=== PATIENT | male | born 1990 | race African-American/Black ===

== ENCOUNTER 2017-10-26 20:41 | Inpatient (IN) | payer MEDICARE ==
[2017-10-26] MEDS ORDERED: IBUPROFEN 400 MG TABLET (FP) PO ONE (20:50)
--- NOTE | 2017-10-26 20:50 | PDOC ---
Rapid Medical Evaluation Time Seen by Provider: 10/26/17 20:47 Medical Evaluation: 10/26/17 20:47 I have performed a brief in-person evaluation of this patient. The patient presents with a chief complaint of: L knee pain/swelling x week, no trauma. Denies urethritis, conjunctivitis or f/c Pertinent physical exam findings:Low grade temp w/ significant L knee swelling, I have ordered the following: labs/ua/xr/motrin The patient will proceed to the ED for further evaluation. 10/26/17 20:54
[2017-10-26 20:54] VITALS: BMI 22.6
[2017-10-26 21:14] LABS: BASO % 0.5 % (0-2.0); EOS % 0.5 % (0-4.5); HEMATOCRIT 39.7 % (35.4-49); HEMOGLOBIN 12.9 GM/dL (11.7-16.9); LYMPH % 23.7 % (8-40); MCH 27.2 pg (25.7-33.7); MCHC 32.4 g/dl (32.0-35.9); MEAN CELL VOLUME 83.8 fl (80-96); MEAN PLT VOLUME 9.1 fl (7.5-11.1); MONO % 11.2 % (3.8-10.2); NEUT % 64.1 % (42.8-82.8); PLATELET COUNT 328 K/MM3 (134-434); RBC 4.74 M/mm3 (4.00-5.60); WHITE BLOOD COUNT 11.5 K/mm3 (4.0-10.0)
[2017-10-26 21:22] LABS: URINE APPEARANCE CLEAR; URINE BILIRUBIN NEGATIVE (NEGATIVE); URINE BLOOD NEGATIVE (NEGATIVE); URINE COLOR YELLOW; URINE GLUCOSE (UA) NEGATIVE (NEGATIVE); URINE KETONE NEGATIVE (NEGATIVE); URINE LEUK ESTERASE NEGATIVE (NEGATIVE); URINE NITRITE NEGATIVE (NEGATIVE); URINE PROTEIN 1+ (NEGATIVE); URINE UROBILINOGEN 4.0 E.U/dl mg/dL (0.2-1.0)
[2017-10-26 21:39] LABS: ALBUMIN 3.9 g/dl (3.4-5.0); ANION GAP 8 (8-16); BILIRUBIN,TOTAL 0.7 mg/dL (0.2-1.0); BLOOD UREA NITROGEN 10 mg/dL (7-18); CALCIUM 9.7 mg/dL (8.5-10.1); CHLORIDE 102 mmol/L (98-107); CO2 30 mmol/L (21-32); CREATININE 0.9 mg/dL (0.7-1.3); GLUCOSE,RANDOM 97 mg/dL (74-106); POTASSIUM 3.8 mmol/L (3.5-5.1); SGOT/AST 21 U/L (15-37); SGPT/ALT 25 U/L (12-78); SODIUM 140 mmol/L (136-145); TOT PROT 7.9 g/dl (6.4-8.2)
[2017-10-26 21:40] LABS: ALK PHOS 90 U/L (45-117)
[2017-10-26 21:49] LABS: URINE MUCUS RARE
--- NOTE | 2017-10-27 00:35 | PDOC ---
History of Present Illness <Josie Ellison - Last Filed: 10/27/17 02:23> - General History Source: Patient - History of Present Illness Initial Comments: 10/27/17 00:24 27 year old male left knee pain and swelling x 4 days that is worsening. denies trauma/ injury, fever/ chills, NVD, abdominal pain, chest pain. no pmhx. 10/27/17 00:54 <Jenae Ellison - Last Filed: 10/27/17 06:48> - General Chief Complaint: Pain, Acute Stated Complaint: LEFT LEG PAIN Time Seen by Provider: 10/26/17 20:47 Extremity Pain Location - Extremity Pain Location Extremity Pain Locations: left: knee <Jenae Ellison - Last Filed: 10/27/17 06:48> Past History <Josie Ellison - Last Filed: 10/27/17 02:23> - Past Medical History COPD: No - Suicide/Smoking/Psychosocial Hx Smoking History: Never smoked Have you smoked in the past 12 months: No Information on smoking cessation initiated: No Hx Alcohol Use: No Drug/Substance Use Hx: No Substance Use Type: None <Jenae Ellison - Last Filed: 10/27/17 06:48> - Past Medical History Allergies/Adverse Reactions: Allergies Allergy/AdvReac Type Severity Reaction Status Date / Time No Known Allergies Allergy Verified 10/26/17 22:22 Home Medications: Ambulatory Orders NK [No Known Home Medication] 10/27/17 Review of Systems - Review of Systems Able to Perform ROS?: Yes Is the patient limited Khmer proficient: No Integumentary: Yes: Other (left knee pain) <Jenae Ellison - Last Filed: 10/27/17 06:48> *Physical Exam - Vital Signs Last Vital Signs Temp Pulse Resp BP Pulse Ox 100.0 F H 122 H 18 142/76 100 10/26/17 20:48 10/26/17 20:48 10/26/17 20:48 10/26/17 20:48 10/26/17 20:48 <Josie Ellison - Last Filed: 10/27/17 02:23> - Vital Signs Last Vital Signs Temp Pulse Resp BP Pulse Ox 100.0 F H 122 H 18 142/76 100 10/26/17 20:48 10/26/17 20:48 10/26/17 20:48 10/26/17 20:48 10/26/17 20:48 - Physical Exam General Appearance: Yes: Appropriately Dressed Respiratory/Chest: positive: Lungs Clear, Normal Breath Sounds Cardiovascular: positive: Tachycardia Gastrointestinal/Abdominal: positive: Normal Bowel Sounds, Soft Extremity: positive: Normal Inspection, Swelling (Left knee pin) Neurologic: positive: Alert, Normal Mood/Affect <Jenae Ellison - Last Filed: 10/27/17 06:48> Procedures - Arthrocentesis Indication: Septic Joint, Inflammation, Reduce Pain Arthrocentesis Site: left: knee Flexion: 20-30 degree Betadine Prep: Yes Sterile Dressing Applied: Yes Dry Tap: No Fluid Color: Yellow Fluid Amount mL: 10 Anesthesia: 1% Lidocaine Needle Size (guage): 18g Complications: No <Josie Ellison - Last Filed: 10/27/17 02:23> - Consent Consent obtained: Written, From Patient - Additional Procedures Additional Procedures: other (left knee fluid withdrawal) Progress: 10/27/17 03:02 10 ml of left knee fluid removed. + clear brown synovial fluid removed, By Dr. ellison. 10/27/17 03:08 <Jenae Ellison - Last Filed: 10/27/17 06:48> ED Treatment Course - LABORATORY CBC & Chemistry Diagram: 10/26/17 20:59 10/26/17 20:59 - ADDITIONAL ORDERS Additional order review: Laboratory Results 10/27/17 10/26/17 10/26/17 01:00 20:59 20:50 Sodium 140 Potassium 3.8 Chloride 102 Carbon Dioxide 30 Anion Gap 8 BUN 10 Creatinine 0.9 Creat Clearance w eGFR > 60 Random Glucose 97 Calcium 9.7 Total Bilirubin 0.7 AST 21 ALT 25 Alkaline Phosphatase 90 C-Reactive Protein 1.8 H Total Protein 7.9 Albumin 3.9 Urine Color Yellow Urine Appearance Clear Urine pH 9.0 H Ur Specific [place] 1.021 Urine Protein 1+ H Urine Glucose (UA) Negative Urine Ketones Negative Urine Blood Negative Urine Nitrite Negative Urine Bilirubin Negative Urine Urobilinogen 4.0 e.u/dl Ur Leukocyte Esterase Negative Urine WBC (Auto) <1 Urine RBC (Auto) None Urine Mucus Rare 10/26/17 20:59 RBC 4.74 MCV 83.8 MCHC 32.4 RDW 13.0 MPV 9.1 Neutrophils % 64.1 Lymphocytes % 23.7 Monocytes % 11.2 H Eosinophils % 0.5 Basophils % 0.5 - Medications Given in the ED: ED Medications Discontinued Medications Generic Name Dose Route Start Last Admin Trade Name Areli PRN Reason Stop Dose Admin Ibuprofen 800 mg 10/26/17 20:50 10/27/17 01:34 Motrin - PO 10/26/17 20:51 Not Given ONCE ONE Ketorolac Tromethamine 30 mg 10/27/17 00:55 10/27/17 00:50 Toradol Injection - IVPUSH 10/27/17 00:56 30 mg ONCE ONE Administration <Josie Ellison - Last Filed: 10/27/17 02:23> - LABORATORY CBC & Chemistry Diagram: 10/26/17 20:59 10/26/17 20:59 - ADDITIONAL ORDERS Additional order review: Laboratory Results 10/26/17 10/26/17 20:59 20:50 Sodium 140 Potassium 3.8 Chloride 102 Carbon Dioxide 30 Anion Gap 8 BUN 10 Creatinine 0.9 Creat Clearance w eGFR > 60 Random Glucose 97 Calcium 9.7 Total Bilirubin 0.7 AST 21 ALT 25 Alkaline Phosphatase 90 Total Protein 7.9 Albumin 3.9 Urine Color Yellow Urine Appearance Clear Urine pH 9.0 H Ur Specific [place] 1.021 Urine Protein 1+ H Urine Glucose (UA) Negative Urine Ketones Negative Urine Blood Negative Urine Nitrite Negative Urine Bilirubin Negative Urine Urobilinogen 4.0 e.u/dl Ur Leukocyte Esterase Negative Urine WBC (Auto) <1 Urine RBC (Auto) None Urine Mucus Rare 10/26/17 20:59 RBC 4.74 MCV 83.8 MCHC 32.4 RDW 13.0 MPV 9.1 Neutrophils % 64.1 Lymphocytes % 23.7 Monocytes % 11.2 H Eosinophils % 0.5 Basophils % 0.5 <Jenae Ellison - Last Filed: 10/27/17 06:48> Progress Note - Progress Note Progress Note: A: left knee pain and swelling / Lyme? arthritis? joint infection? gonococci arthritis? P: CBC cmp ibuprofen ESR CRP blood culture XRay Dr. singh made aware of patient. recommends therapeutic fluid removal (cell count , gram stain, crystals pending. ) <Jenae Ellison - Last Filed: 10/27/17 06:48> Medical Decision Making - Medical Decision Making 10/27/17 03:08 Patient signed out to Dr. padilla. Patient to be admitted for further management of care. 10/27/17 03:10 <Jenae Ellison - Last Filed: 10/27/17 06:48> *DC/Admit/Observation/Transfer <Josie Ellison - Last Filed: 10/27/17 02:23> - Discharge Dispostion Admit: Yes <Jenae Ellison - Last Filed: 10/27/17 06:48> Diagnosis at time of Disposition: Swelling of knee joint, left
[2017-10-27] MEDS ORDERED: KETOROLAC TROMETHAMINE 30 MG/1 ML VIAL IVPUSH ONE (00:55)
[2017-10-27] MEDS ORDERED: KETOROLAC TROMETHAMINE 30 MG/1 ML VIAL ONE (01:07)
[2017-10-27] MEDS ORDERED: CEFTRIAXONE 2,000 MG in DEXTROSE 5%-WATER - 50 ML IVPB ONE (01:44)
[2017-10-27] MEDS ORDERED: cefTRIAXone 2 GM/100 ML BAG (PRE-DOCKED) IVPB ONE (02:15)
[2017-10-27] MEDS ORDERED: CEFTRIAXONE 2 GM/100 ML BAG IVPB ONE (02:40)
[2017-10-27 02:55] LABS: TOTAL PROTEIN,SYNOVIAL FLUID 5 gm/dL
[2017-10-27 02:56] LABS: GLUCOSE,SYNOVIAL FLUID 16 mg/dL
--- NOTE | 2017-10-27 03:08 | PN ---
Teaching Attending Note Name of Resident: Kuldip Wise ATTENDING PHYSICIAN STATEMENT I saw and evaluated the patient. I reviewed the resident's note and discussed the case with the resident. I agree with the resident's findings and plan as documented. SUBJECTIVE: 27 M with no Pmhx who presents with Left knee pain. Also with associated swelling. Pain and edema have been going on for 4 days in duration. States he does not note any injuries and that this has never happened. States he is not sexually active. OBJECTIVE: Physica: VS: Vital Signs Period Temp Pulse Resp BP Sys/Ta Pulse Ox Last 24 Hr 99 F-100.0 F 122 18 142/76 100 GEN: NAD, Resting in bed, AA0X3 HEENT: NCAT, PERRL, Throat without erythema or exudates CARD: RRR S1, S2 RESP: CTAB ABD: BSx4, NTD to palpation EXT: L. Knee with warmth and edema CBCD WBC 11.5 K/mm3 (4.0-10.0) H 10/26/17 20:59 RBC 4.74 M/mm3 (4.00-5.60) 10/26/17 20:59 Hgb 12.9 GM/dL (11.7-16.9) 10/26/17 20:59 Hct 39.7 % (35.4-49) 10/26/17 20:59 MCV 83.8 fl (80-96) 10/26/17 20:59 MCHC 32.4 g/dl (32.0-35.9) 10/26/17 20:59 RDW 13.0 % (11.9-15.9) 10/26/17 20:59 Plt Count 328 K/MM3 (134-434) 10/26/17 20:59 MPV 9.1 fl (7.5-11.1) 10/26/17 20:59 CMP Sodium 140 mmol/L (136-145) 10/26/17 20:59 Potassium 3.8 mmol/L (3.5-5.1) 10/26/17 20:59 Chloride 102 mmol/L (98-107) 10/26/17 20:59 Carbon Dioxide 30 mmol/L (21-32) 10/26/17 20:59 Anion Gap 8 (8-16) 10/26/17 20:59 BUN 10 mg/dL (7-18) 10/26/17 20:59 Creatinine 0.9 mg/dL (0.7-1.3) 10/26/17 20:59 Creat Clearance w eGFR > 60 (>60) 10/26/17 20:59 Random Glucose 97 mg/dL (74-106) 10/26/17 20:59 Calcium 9.7 mg/dL (8.5-10.1) 10/26/17 20:59 Total Bilirubin 0.7 mg/dL (0.2-1.0) 10/26/17 20:59 AST 21 U/L (15-37) 10/26/17 20:59 ALT 25 U/L (12-78) 10/26/17 20:59 Alkaline Phosphatase 90 U/L (45-117) 10/26/17 20:59 Total Protein 7.9 g/dl (6.4-8.2) 10/26/17 20:59 Albumin 3.9 g/dl (3.4-5.0) 10/26/17 20:59 ASSESSMENT AND PLAN: 27 M with no Pmhx who presents with Left knee pain. Also with associated swelling. Pain and edema have been going on for 4 days in duration, being admitted for a possible septic joint 1.) Sepsis - Most likely due to joint infection of L Knee - FU Xray - LA stat - IVF - Ortho consulted by ED, Appreciate reccs - Dan cx - FU Synovial fluid studies - FU GC/Chlam - HIV testing if pt. willing - Vanco/Ceftriaxone - ID Consult - Coags, CBC, Type & Screen 2.) Dvt Ppx - Scds Place in Med-Sx
[2017-10-27 03:17] LABS: SYNOVIAL FLUID LYMPHOCYTES 2 %; SYNOVIAL FLUID MACROPHAGES 7 %; SYNOVIAL FLUID MONOCYTES 4 %; SYNOVIAL FLUID NEUTROPHILS 87 %; SYNOVIAL FLUID RBC 7029 /mm3
--- NOTE | 2017-10-27 03:34 | HP ---
CHIEF COMPLAINT: L knee pain, swelling x4 days PCP: None HISTORY OF PRESENT ILLNESS: 27 yo man w/ no significant pmh who presents w/ 4 days of progressive worsening L knee swelling and pain. Pt states that pain in L knee began the prior Wednesday and that it progressively developed with no trauma to the L knee or leg. Pt states that the pain is throbbing in nature, with no radiation to other areas of the leg and denies any neuro/vascular symptoms in the L leg. He does endorse periarticular swelling and weakness at the knee with ambulation, but no sensation of crepitus, increased laxity or gross deformity. He denies any hx of psoriasis, STDs, arthridities, recent rashes, dysuria, genital lesions, diets with large amounts of meat/seafood, excessive alcohol consumption or recent unprotected sex. He denies any pain in other joints and has never had pain like this before. He denies any fever/chills, HILL/dizziness, CP, SOB, cough, abdominal pain, N/V, diarrhea/constipation, rashes or neurologic symptoms. He endorses multiple family members with arthritis (Grandfather, mother), but is unsure of the etiology. Pt denies any recent travel. ER course was notable for: (1)WBC 11.5 (2)Fever 100, Tachy 122 (3)CRP 1.8, ESR 13 (4) Synovial fluid w/ WBC 6284 Recent Travel: None PAST MEDICAL HISTORY: None PAST SURGICAL HISTORY: None Social History: Smokin/3 ppd Alcohol: 2-3 drinks/week, social drinker Drugs: Denies Denies any hx of unprotected sex Family History: Grandfather w/ arthritis of unknown etiology Mother w/ arthritis of unknown etiology, DM2 Allergies No Known Allergies Allergy (Verified 10/26/17 22:22) HOME MEDICATIONS: REVIEW OF SYSTEMS CONSTITUTIONAL: Absent: fever, chills, diaphoresis, generalized weakness, malaise, loss of appetite, weight change HEENT: Absent: rhinorrhea, nasal congestion, throat pain, throat swelling, difficulty swallowing, mouth swelling, ear pain, eye pain, visual changes CARDIOVASCULAR: Absent: chest pain, syncope, palpitations, irregular heart rate, lightheadedness , peripheral edema RESPIRATORY: Absent: cough, shortness of breath, dyspnea with exertion, orthopnea, wheezing, stridor, hemoptysis GASTROINTESTINAL: Absent: abdominal pain, abdominal distension, nausea, vomiting, diarrhea, constipation, melena, hematochezia GENITOURINARY: Absent: dysuria, frequency, urgency, hesitancy, hematuria, flank pain, genital pain MUSCULOSKELETAL: joint swelling, arthralgia x4 days Absent: myalgia, back pain, neck pain SKIN: Absent: rash, itching, pallor HEMATOLOGIC/IMMUNOLOGIC: Absent: easy bleeding, easy bruising, lymphadenopathy, frequent infections ENDOCRINE: Absent: unexplained weight gain, unexplained weight loss, heat intolerance, cold intolerance NEUROLOGIC: Absent: headache, focal weakness or paresthesias, dizziness, unsteady gait, seizure, mental status changes, bladder or bowel incontinence PHYSICAL EXAMINATION Vital Signs - 24 hr 10/26/17 10/27/17 20:48 02:39 Temperature 100.0 F H 99 F Pulse Rate 122 H Respiratory 18 Rate Blood Pressure 142/76 O2 Sat by Pulse 100 Oximetry (%) GENERAL: Awake, alert, and fully oriented, in no acute distress. HEAD: Normal with no signs of trauma. EYES: Pupils equal, round and reactive to light, extraocular movements intact, sclera anicteric, conjunctiva clear. No lid lag. EARS, NOSE, THROAT: Ears normal, nares patent, oropharynx clear without exudates. Moist mucous membranes. NECK: Normal range of motion, supple without lymphadenopathy, JVD, or masses. LUNGS: Breath sounds equal, clear to auscultation bilaterally. No wheezes, and no crackles. No accessory muscle use. HEART: Regular rate and rhythm, normal S1 and S2 without murmur, rub or gallop. ABDOMEN: Soft, nontender, not distended, normoactive bowel sounds, no guarding, no rebound, no masses. No hepatomegaly or splenomegaly. MUSCULOSKELETAL: L knee with periarticular edema, no erythema or tenderness to palpation. Limited ROM to passive flexion/extension due to pain/edema. No lacerations, gross deformities noted. Negative naheed's, posterior drawer test. No obvious bony deformities noted at joint line. [facility]'s test not performed. No other joint pain/abnormalities. No CVA tenderness. UPPER EXTREMITIES: 2+ pulses, warm, well-perfused. No cyanosis. No clubbing. No peripheral edema. LOWER EXTREMITIES: L knee with findings as stated above. 2+ pulses, warm, well- perfused. No calf tenderness. No peripheral edema. NEUROLOGICAL: Cranial nerves II-XII intact. Normal speech. Gait not evaluated. 5/5 strength in all extremities grossly. Sensation to light touch preserved in all extremities. PSYCHIATRIC: Cooperative. Good eye contact. Appropriate mood and affect. SKIN: Warm, dry, normal turgor, no rashes or lesions noted, normal capillary refill. Laboratory Results - last 24 hr CBC, BMP 10/26/17 20:59 10/26/17 20:59 10/26/17 10/26/17 10/26/17 20:50 20:59 20:59 WBC 11.5 H RBC 4.74 Hgb 12.9 Hct 39.7 MCV 83.8 MCH 27.2 MCHC 32.4 RDW 13.0 Plt Count 328 MPV 9.1 Neutrophils % 64.1 Lymphocytes % 23.7 Monocytes % 11.2 H Eosinophils % 0.5 Basophils % 0.5 ESR Sodium 140 Potassium 3.8 Chloride 102 Carbon Dioxide 30 Anion Gap 8 BUN 10 Creatinine 0.9 Creat Clearance w eGFR > 60 Random Glucose 97 Calcium 9.7 Total Bilirubin 0.7 AST 21 ALT 25 Alkaline Phosphatase 90 C-Reactive Protein Total Protein 7.9 Albumin 3.9 Urine Color Yellow Urine Appearance Clear Urine pH 9.[address] [place] 1.021 Urine Protein 1+ H Urine Glucose (UA) Negative Urine Ketones Negative Urine Blood Negative Urine Nitrite Negative Urine Bilirubin Negative Urine Urobilinogen 4.0 e.u/dl Ur Leukocyte Esterase Negative Urine WBC (Auto) <1 Urine RBC (Auto) None Urine Mucus Rare Synovial Source Synovial WBC Synovial RBC Synovial Neutrophils Synovial Lymphocytes Synovial Monocytes Synovial Macrophages Synovial Glucose Synovial Total Protein Synovial LDH Synovial Amylase 10/27/17 10/27/17 10/27/17 01:00 01:00 02:15 WBC RBC Hgb Hct MCV MCH MCHC RDW Plt Count MPV Neutrophils % Lymphocytes % Monocytes % Eosinophils % Basophils % ESR 13 H Sodium Potassium Chloride Carbon Dioxide Anion Gap BUN Creatinine Creat Clearance w eGFR Random Glucose Calcium Total Bilirubin AST ALT Alkaline Phosphatase C-Reactive Protein 1.8 H Total Protein Albumin Urine Color Urine Appearance Urine pH Ur Specific [place] Urine Protein Urine Glucose (UA) Urine Ketones Urine Blood Urine Nitrite Urine Bilirubin Urine Urobilinogen Ur Leukocyte Esterase Urine WBC (Auto) Urine RBC (Auto) Urine Mucus Synovial Source No Result Required. Synovial WBC 6284 Synovial RBC 7029 Synovial Neutrophils 87 Synovial Lymphocytes 2 Synovial Monocytes 4 Synovial Macrophages 7 Synovial Glucose Synovial Total Protein Synovial LDH Synovial Amylase 10/27/17 02:15 WBC RBC Hgb Hct MCV MCH MCHC RDW Plt Count MPV Neutrophils % Lymphocytes % Monocytes % Eosinophils % Basophils % ESR Sodium Potassium Chloride Carbon Dioxide Anion Gap BUN Creatinine Creat Clearance w eGFR Random Glucose Calcium Total Bilirubin AST ALT Alkaline Phosphatase C-Reactive Protein Total Protein Albumin Urine Color Urine Appearance Urine pH Ur Specific [place] Urine Protein Urine Glucose (UA) Urine Ketones Urine Blood Urine Nitrite Urine Bilirubin Urine Urobilinogen Ur Leukocyte Esterase Urine WBC (Auto) Urine RBC (Auto) Urine Mucus Synovial Source Synovial WBC Synovial RBC Synovial Neutrophils Synovial Lymphocytes Synovial Monocytes Synovial Macrophages Synovial Glucose 16 Synovial Total Protein 5 Synovial LDH 141 Synovial Amylase 58 CXR (PA/lateral) - pending Knee XR - unremarkable EKG - pending ASSESSMENT/PLAN: 27 yo man w/ no significant pmh who presents w/ 4 days of progressive worsening L knee swelling and pain. Pt with 2/4 SIRS criteria (Fever 100, tachy 122) and suspected source. Ortho, ID consulted and joint fluid aspirate sent for analysis. #Sepsis secondary to suspected septic arthritis - 2/4 SIRS (Tachy 122, fever) + presumptive L joint infection, WBC 11.5; L joint fluid WBC 6284; ERP, CRP elevated - Elevated synovial WBC suggestive of inflammatory arthritis, however not in the typical range for septic arthritis (>50,000). - Ortho consulted (Dr. Calhoun aware, will see pt in AM) - Beach culture - Rocephin/Vancomycin for empiric coverage - F/u remaining joint aspirate studies (lyme, crystals, gram stain etc..) - Tylenol for pain control - Trend WBC, fever - Consider Uric Acid level, CCP/RF if indicated - GC/Chlamydia test - HIV test if patient amenable - Obtain further fam hx regarding unknown arthritis - Lactate 0.8 - IVFs - UA negative - ID consult, recs appreciated PPX SCDs FEN NS 75cc/hr Daily BMPs, no eletrolyte abnormalities Regular diet Med-surg Plan discussed with attending, Dr. Sukhdev Wise, PGY1 Visit type - Emergency Visit Emergency Visit: Yes ED Registration Date: 10/27/17 Care time: The patient presented to the Emergency Department on the above date and was hospitalized for further evaluation of their emergent condition. - New Patient This patient is new to me today: Yes Date on this admission: 10/27/17 - Critical Care Critical Care patient: No
[2017-10-27] MEDS ORDERED: ACETAMINOPHEN 325 MG TABLET (FP) PO PRN (04:03)
[2017-10-27] MEDS ORDERED: VANCOMYCIN 1,000 MG in DEXTROSE 5%-WATER - 250 ML IVPB ONE (04:13)
[2017-10-27] MEDS ORDERED: VANCOMYCIN 1 GRAM (PRE-DOCKED) 1,000 MG/250 ML BAG IVPB ONE (05:06)
[2017-10-27] MEDS: SODIUM CHLORIDE 1,000 ML IV SCH ×2 (05:12→10:38)
[2017-10-27] MEDS ORDERED: HEPARIN NA (PORCINE) 5,000 UNITS/ML 1ML VIAL SQ SCH (06:00)
[2017-10-27 07:58] LABS: ALBUMIN 3.6 g/dl (3.4-5.0); ANION GAP 6 (8-16); BILIRUBIN,TOTAL 0.7 mg/dL (0.2-1.0); BLOOD UREA NITROGEN 12 mg/dL (7-18); CALCIUM 8.7 mg/dL (8.5-10.1); CHLORIDE 103 mmol/L (98-107); CO2 31 mmol/L (21-32); CREATININE 0.9 mg/dL (0.7-1.3); GLUCOSE,RANDOM 97 mg/dL (74-106); POTASSIUM 3.9 mmol/L (3.5-5.1); SGOT/AST 14 U/L (15-37); SGPT/ALT 21 U/L (12-78); SODIUM 140 mmol/L (136-145); TOT PROT 7.5 g/dl (6.4-8.2)
[2017-10-27 07:59] LABS: ALK PHOS 87 U/L (45-117)
[2017-10-27 08:06] LABS: BASO % 0.5 % (0-2.0); EOS % 0.8 % (0-4.5); HEMATOCRIT 41.6 % (35.4-49); HEMOGLOBIN 13.2 GM/dL (11.7-16.9); LYMPH % 28.8 % (8-40); MCHC 31.7 g/dl (32.0-35.9); MEAN CELL VOLUME 85.2 fl (80-96); MEAN PLT VOLUME 9.1 fl (7.5-11.1); MONO % 10.7 % (3.8-10.2); NEUT % 59.2 % (42.8-82.8); PLATELET COUNT 332 K/MM3 (134-434); RBC 4.88 M/mm3 (4.00-5.60); RDW 13.1 % (11.9-15.9)
[2017-10-27 08:40] LABS: INR 1.07 (0.82-1.09); PROTHROMBIN TIME (PATIENT) 12.1 SEC (9.98-11.88)
--- NOTE | 2017-10-27 10:54 | PN ---
Progress Note (short form) - Note Progress Note: ID consult dictated imp/reccd acute monoarticular arthritis-no falls no injury, no bites arthrocentesis more c/w inflammatory process then septic arthritis, but esr is 13! exam as well not c/w septic knee await studies of the fluid check lyme (but no RF) chlamydia/GC NAAT pending agreeable to HIV testing cultures pending ortho eval pending continue ceftriaxone
--- NOTE | 2017-10-27 11:09 | CONSULT ---
Consult - text type - Consultation Consultation Note: FULL CONSULT DICTATED IMP: effusion left knee PLAN: NSAIDS, ? ABX FOR GC
--- NOTE | 2017-10-27 12:06 | CONS ---
DATE OF CONSULTATION: 10/27/2017 ORTHOPEDIC EMERGENCY ROOM CONSULTATION/[facility] Patient is a 27-year-old male complaining of atraumatic effusion and swelling in his left knee for the past day or two with a low-grade fever. He presented to the emergency room with these complaints. The emergency room staff tapped the knee in the emergency room and received a white blood cell count of 6284. Patient laboratory value shows a white count of 11.5, which is slightly elevated, and a sedimentation rate of only 13. Orthopedic consultation was then called. PHYSICAL EXAMINATION: On physical examination, patient has full range of motion in hip, knee, ankle, and toes. He does have a moderate effusion in his left knee, but no tenderness, no erythema, warmth, otherwise neurovascularly intact. Calf is soft, nontender. IMAGING: X-rays performed of the left knee were negative of fracture, dislocation, lytic or blastic lesions. Positive for the effusion. IMPRESSION: Atraumatic effusion in the left knee. Patient does say that he was sexually active, unprotected. So, one must entertain the possibility of gonorrhea to his left knee. Otherwise, the tap with only 6000 white cells is not conclusive for septic arthritis. Patient should be placed some anti-inflammatories, ice, elevation, Infectious Disease is seeing the patient, as well, and we will follow the patient while the patient is in the hospital and as an outpatient. KAMILAH SHERWOOD M.D. BRAEDEN/[id number]
--- NOTE | 2017-10-27 12:13 | CONS ---
INFECTIOUS DISEASE CONSULTATION DATE OF CONSULTATION: DATE OF DICTATION: 10/27/2017 Requested by the hospitalist service. This is a 27-year-old man admitted with 4 days of worsening left knee swelling. This started on Wednesday. Then, he apparently did not work on Wednesday or Wednesday. He returned to work and was on his feet all day on Wednesday. His pain got much worse. He had a lot of swelling and he came to the emergency room. He has never had this happen before. He denies any other joint swelling. He has not had any rash. He has not had any fevers or chills. There has been no antecedent illness in the last several months. He has not had any diarrheal illnesses. He is sexually active. He has one partner with whom he is monogamous. He denies any history of STDs. His was last screened about a year ago. There is no history of any travel. He does not have any pets. There is no history of any trauma or falls. In the ER, he was noted to have a temp of 100, white count was 11.5, his sedimentation rate was 13, and he had 10 mL of clear fluid removed from his knee that had a white cell count of 6284. Past medical history and surgical history are negative. SOCIAL HISTORY: He works at [employer]. He smokes cigarettes. He drinks alcohol socially. He works in a store. There is no history of any intravenous drug use. He has a girlfriend. He lives with his grandmother. He was STD-screened last year and was negative. REVIEW OF SYSTEMS: There have been no tick bites. His weight has been stable. He denies any URI or cough or cold symptoms. He denies any dysuria or any penile discharge, as well. He has no conjunctivitis on exam. PHYSICAL EXAMINATION: Vital signs: His temperature is 98.3, T-maximum was 100, pulse of 69, blood pressure 109/64, respiratory rate is 18. HEENT: He is normocephalic. His eyes are anicteric. He has no thrush. He has a tongue piercing. Lymphatics: He has no cervical or axillary adenopathy or shotty inguinal nodes Neck: Supple. Heart: Regular rate and rhythm. Lungs: Clear to auscultation. Abdomen: Soft. Nontender. Extremities: He has no swelling of any of his joints, except for his left knee where there is evidence of a joint effusion. It is ballotable. He has no associated erythema and it is minimally tender to touch. His labs are notable on admission for white count of 11.9, this morning 9, hemoglobin is 13.2, platelets are 332, with a sedimentation rate of 13, BUN and creatinine are 12 and 0.9, with a CRP of 108. The synovial white cell count is 6284 with 87 polys. Chlamydia and Lyme serology are pending. Blood cultures are pending, as well. X-ray of the knee shows no trauma. There is evidence of a suprapatellar joint effusion. Chest x-ray is negative. In summary, this is a young man with acute monoarticular arthritis of his left knee. The synovial fluid is not consistent with septic arthritis, more with an inflammatory process, perhaps reactive, but he denies any recent illnesses. He will be seen by Ortho. Would continue ceftriaxone. He is agreeable to HIV screening. Follow up joint aspirate studies for crystals and Gram stain, serology for Lyme, as well as nucleic acid amplification for chlamydia and GC have been sent. Further recommendations to follow based on his clinical course. Fanny [id number]
--- NOTE | 2017-10-27 13:17 | EKG ---
Test Reason : Blood Pressure : / mmHG Vent. Rate : 067 BPM Atrial Rate : 067 BPM P-R Int : 166 ms QRS Dur : 094 ms QT Int : 376 ms P-R-T Axes : -22 073 044 degrees QTc Int : 397 ms NORMAL SINUS RHYTHM NORMAL ECG NO PREVIOUS ECGS AVAILABLE Confirmed by YONATAN BURT MD ([id number]) on 10/27/2017 1:17:33 PM Referred By: Confirmed By:YONATAN BURT MD
--- NOTE | 2017-10-27 14:04 | MSN ---
Progress Note (short form) - Note Progress Note: SUBJECTIVE CC: L knee pain with swelling x 4 days HPI: Patient seen and examined today. Pt states pain and swelling in L knee are much improved since admission. He reports pain when moving the L leg and full ROM of L knee; when he was admitted, he reports, "I couldn't bend it at all". He denies pain elsewhere in the body. He denies any gross deformity of knee, family history of gout, and reports he doesn't eat much red meat. He reports family history of some "arthritis" but unsure what type but agreed to confirm with family members today regarding specific dx. He feels "cold" but denies n/v , fever, chills, dizziness, fever, or rashes. OBJECTIVE Last Vital Signs Temp Pulse Resp BP Pulse Ox 99.5 F 73 18 121/71 99 10/27/17 11:32 10/27/17 11:32 10/27/17 11:32 10/27/17 11:32 10/27/17 08:58 General: Pt is lying comfortably in bed, without jacket, smiling and in no acute distress. Heart: Regular rate and rhythm. No murmurs appreciated. S1/S2. Lungs: Clear to auscultation B/L with equal breath sounds. No crackles, wheezing or rhonchi. Abdomen: NT/ND. Normoactive bowel sounds in all four quadrants. Soft to palpation in all four quadrants. Extremities: 2+ radial pulses, 2+ DP pulses, no cyanosis, clubbing or edema. R knee without gross deformity, erythema, edema or pain to palpation. L knee painful to palpation, effusion/swelling noted in L lateral suprapubic knee, mild warmth to touch, no erythema. Synovial aspiration site was taped with band- aid, no drainage or discharge noted. L knee xray - suprapatellar joint effusion in L knee, no acute bony abnormalities CXR: No evidence of acute pulmonary disease EKG: normus sinus rhythm, normal Active Medications Generic Name Dose Route Start Last Admin Trade Name Freq PRN Reason Stop Dose Admin Acetaminophen 650 mg 10/27/17 04:03 Tylenol - PO Q4H PRN FEVER OR PAIN Sodium Chloride 1,000 mls @ 75 mls/hr 10/27/17 04:15 10/27/17 10:38 Normal Saline - IV 75 mls/hr ASDIR JENNIFER Administration CEFTRIAXONE IN IS-OSM DEXTROSE 2 gm in 50 mls @ 100 mls/hr 10/28/17 10:00 Ceftriaxone 2 Gm-D5w Bag IVPB DAILY JENNIFER CBC, BMP 10/27/17 07:20 10/27/17 07:20 Laboratory Results - last 24 hr 10/26/17 10/26/17 10/26/17 20:50 20:59 20:59 WBC 11.5 H RBC 4.74 Hgb 12.9 Hct 39.7 MCV 83.8 MCH 27.2 MCHC 32.4 RDW 13.0 Plt Count 328 MPV 9.1 Neutrophils % 64.1 Lymphocytes % 23.7 Monocytes % 11.2 H Eosinophils % 0.5 Basophils % 0.5 ESR PT with INR INR PTT (Actin FS) Sodium 140 Potassium 3.8 Chloride 102 Carbon Dioxide 30 Anion Gap 8 BUN 10 Creatinine 0.9 Creat Clearance w eGFR > 60 Random Glucose 97 Lactic Acid Calcium 9.7 Total Bilirubin 0.7 AST 21 ALT 25 Alkaline Phosphatase 90 C-Reactive Protein Total Protein 7.9 Albumin 3.9 Urine Color Yellow Urine Appearance Clear Urine pH 9.0 H Ur Specific [place] 1.021 Urine Protein 1+ H Urine Glucose (UA) Negative Urine Ketones Negative Urine Blood Negative Urine Nitrite Negative Urine Bilirubin Negative Urine Urobilinogen 4.0 e.u/dl Ur Leukocyte Esterase Negative Urine WBC (Auto) <1 Urine RBC (Auto) None Urine Mucus Rare Synovial Source Synovial WBC Synovial RBC Synovial Neutrophils Synovial Lymphocytes Synovial Monocytes Synovial Macrophages Synovial Crystals Synovial Glucose Synovial Total Protein Synovial LDH Synovial Amylase Blood Type Antibody Screen 10/27/17 10/27/17 10/27/17 01:00 01:00 02:15 WBC RBC Hgb Hct MCV MCH MCHC RDW Plt Count MPV Neutrophils % Lymphocytes % Monocytes % Eosinophils % Basophils % ESR 13 H PT with INR INR PTT (Actin FS) Sodium Potassium Chloride Carbon Dioxide Anion Gap BUN Creatinine Creat Clearance w eGFR Random Glucose Lactic Acid Calcium Total Bilirubin AST ALT Alkaline Phosphatase C-Reactive Protein 1.8 H Total Protein Albumin Urine Color Urine Appearance Urine pH Ur Specific [place] Urine Protein Urine Glucose (UA) Urine Ketones Urine Blood Urine Nitrite Urine Bilirubin Urine Urobilinogen Ur Leukocyte Esterase Urine WBC (Auto) Urine RBC (Auto) Urine Mucus Synovial Source No Result Required. Synovial WBC 6284 Synovial RBC 7029 Synovial Neutrophils 87 Synovial Lymphocytes 2 Synovial Monocytes 4 Synovial Macrophages 7 Synovial Crystals Synovial Glucose Synovial Total Protein Synovial LDH Synovial Amylase Blood Type Antibody Screen 10/27/17 10/27/17 10/27/17 02:15 02:15 03:15 WBC RBC Hgb Hct MCV MCH MCHC RDW Plt Count MPV Neutrophils % Lymphocytes % Monocytes % Eosinophils % Basophils % ESR PT with INR INR PTT (Actin FS) Sodium Potassium Chloride Carbon Dioxide Anion Gap BUN Creatinine Creat Clearance w eGFR Random Glucose Lactic Acid 0.8 Calcium Total Bilirubin AST ALT Alkaline Phosphatase C-Reactive Protein Total Protein Albumin Urine Color Urine Appearance Urine pH Ur Specific [place] Urine Protein Urine Glucose (UA) Urine Ketones Urine Blood Urine Nitrite Urine Bilirubin Urine Urobilinogen Ur Leukocyte Esterase Urine WBC (Auto) Urine RBC (Auto) Urine Mucus Synovial Source Synovial WBC Synovial RBC Synovial Neutrophils Synovial Lymphocytes Synovial Monocytes Synovial Macrophages Synovial Crystals Negative Synovial Glucose 16 Synovial Total Protein 5 Synovial LDH 141 Synovial Amylase 58 Blood Type Antibody Screen 10/27/17 10/27/17 10/27/17 07:20 07:20 07:20 WBC 9.0 RBC 4.88 Hgb 13.2 Hct 41.6 MCV 85.2 MCH 27.0 MCHC 31.7 L RDW 13.1 Plt Count 332 MPV 9.1 Neutrophils % 59.2 Lymphocytes % 28.8 D Monocytes % 10.7 H Eosinophils % 0.8 Basophils % 0.5 ESR PT with INR 12.10 H INR 1.07 PTT (Actin FS) 36.0 H Sodium 140 Potassium 3.9 Chloride 103 Carbon Dioxide 31 Anion Gap 6 L BUN 12 Creatinine 0.9 Creat Clearance w eGFR > 60 Random Glucose 97 Lactic Acid Calcium 8.7 Total Bilirubin 0.7 AST 14 L D ALT 21 Alkaline Phosphatase 87 C-Reactive Protein Total Protein 7.5 Albumin 3.6 Urine Color Urine Appearance Urine pH Ur Specific [place] Urine Protein Urine Glucose (UA) Urine Ketones Urine Blood Urine Nitrite Urine Bilirubin Urine Urobilinogen Ur Leukocyte Esterase Urine WBC (Auto) Urine RBC (Auto) Urine Mucus Synovial Source Synovial WBC Synovial RBC Synovial Neutrophils Synovial Lymphocytes Synovial Monocytes Synovial Macrophages Synovial Crystals Synovial Glucose Synovial Total Protein Synovial LDH Synovial Amylase Blood Type Antibody Screen 10/27/17 09:15 WBC RBC Hgb Hct MCV MCH MCHC RDW Plt Count MPV Neutrophils % Lymphocytes % Monocytes % Eosinophils % Basophils % ESR PT with INR INR PTT (Actin FS) Sodium Potassium Chloride Carbon Dioxide Anion Gap BUN Creatinine Creat Clearance w eGFR Random Glucose Lactic Acid Calcium Total Bilirubin AST ALT Alkaline Phosphatase C-Reactive Protein Total Protein Albumin Urine Color Urine Appearance Urine pH Ur Specific [place] Urine Protein Urine Glucose (UA) Urine Ketones Urine Blood Urine Nitrite Urine Bilirubin Urine Urobilinogen Ur Leukocyte Esterase Urine WBC (Auto) Urine RBC (Auto) Urine Mucus Synovial Source Synovial WBC Synovial RBC Synovial Neutrophils Synovial Lymphocytes Synovial Monocytes Synovial Macrophages Synovial Crystals Synovial Glucose Synovial Total Protein Synovial LDH Synovial Amylase Blood Type A POSITIVE Antibody Screen Negative ASSESSMENT 27 y/o M with no PMHx who presented to ED with 4 days of progressive pain and swelling in L knee. Pt was febrile and tachycardic upon admission and admitted to sepsis possibly 2/2 septic arthritis. PLAN 1. Sepsis likely 2/2 septic arthritis vs. gout vs. other inflammatory process - Pt febrile, tachycardic, leukocytosis at 11.5; now WBC wnl, vitals all wnl, pt is afebrile. - UA, CXR, EKG wnl; source of sepsis upon admission likely not cardiac, urinary tract, pulmonary. - suprapatellar L knee effusion noted on X-ray; likely inflammatory changes, ESR and CRP elevated upon admission. - Synovial fluid aspirate culture, gram stain still pending; will f/u - Empiric tx with Ceftriaxone 2gm in 50 mls @100cc/hr; as per ID - pt agreeable to HIV testing; ordered by ID, will f/u results - Serology (Lyme, Chlamydia, Gonorrhea), Blood cultures still pending; will f/u. - Ortho consulted, Dr. Calhoun. Recs appreciated. Will adjust tx accordingly. - Tylenol PRN pain - IVF - NS 1000mls @75cc/hr, 2. FEN - Fluids: IV NS 1000mls @75cc/hr, gentle hydration secondary to sepsis on admission - Electrolytes: wnl - Nutrition: Regular diet 3. PPX - SCDs, early ambulation 4. Dispo - currently in ED overflow Valery Jacob OMS-3
--- NOTE | 2017-10-27 14:18 | PN ---
Physical Exam: SUBJECTIVE: Patient seen and examined at bedside. Patient states that he has some mild pain near the joint aspiration site, but is otherwise clinically stable. States that he has some trouble bending the knee. Patient states that the swelling has partially resolved since admission. OBJECTIVE: Vital Signs Period Temp Pulse Resp BP Sys/Ta Pulse Ox Last 24 Hr 98.3 F-100.0 F 63-122 18-18 109-142/59-76 98-100 GENERAL: The patient is awake, alert, and fully oriented, in no acute distress. LUNGS: Breath sounds equal, clear to auscultation bilaterally, no wheezes, no crackles, no accessory muscle use. HEART: Regular rate and rhythm, S1, S2 without murmur, rub or gallop. ABDOMEN: Soft, nontender, nondistended, normoactive bowel sounds, no guarding, no rebound, no hepatosplenomegaly, no masses. EXTREMITIES: 2+ pulses, warm, well-perfused, L knee mildly swollen with bandage over arthrocentesis site. ROM reduced in L knee NEUROLOGICAL: Cranial nerves II through XII grossly intact. Normal speech, gait not observed. PSYCH: Normal mood, normal affect. SKIN: Warm, dry, normal turgor, no rashes or lesions noted Laboratory Results - last 24 hr 10/26/17 10/26/17 10/26/17 20:50 20:59 20:59 WBC 11.5 H RBC 4.74 Hgb 12.9 Hct 39.7 MCV 83.8 MCH 27.2 MCHC 32.4 RDW 13.0 Plt Count 328 MPV 9.1 Neutrophils % 64.1 Lymphocytes % 23.7 Monocytes % 11.2 H Eosinophils % 0.5 Basophils % 0.5 ESR PT with INR INR PTT (Actin FS) Sodium 140 Potassium 3.8 Chloride 102 Carbon Dioxide 30 Anion Gap 8 BUN 10 Creatinine 0.9 Creat Clearance w eGFR > 60 Random Glucose 97 Lactic Acid Calcium 9.7 Total Bilirubin 0.7 AST 21 ALT 25 Alkaline Phosphatase 90 C-Reactive Protein Total Protein 7.9 Albumin 3.9 Urine Color Yellow Urine Appearance Clear Urine pH 9.0 H Ur Specific [place] 1.021 Urine Protein 1+ H Urine Glucose (UA) Negative Urine Ketones Negative Urine Blood Negative Urine Nitrite Negative Urine Bilirubin Negative Urine Urobilinogen 4.0 e.u/dl Ur Leukocyte Esterase Negative Urine WBC (Auto) <1 Urine RBC (Auto) None Urine Mucus Rare Synovial Source Synovial WBC Synovial RBC Synovial Neutrophils Synovial Lymphocytes Synovial Monocytes Synovial Macrophages Synovial Crystals Synovial Glucose Synovial Total Protein Synovial LDH Synovial Amylase Blood Type Antibody Screen 10/27/17 10/27/17 10/27/17 01:00 01:00 02:15 WBC RBC Hgb Hct MCV MCH MCHC RDW Plt Count MPV Neutrophils % Lymphocytes % Monocytes % Eosinophils % Basophils % ESR 13 H PT with INR INR PTT (Actin FS) Sodium Potassium Chloride Carbon Dioxide Anion Gap BUN Creatinine Creat Clearance w eGFR Random Glucose Lactic Acid Calcium Total Bilirubin AST ALT Alkaline Phosphatase C-Reactive Protein 1.8 H Total Protein Albumin Urine Color Urine Appearance Urine pH Ur Specific [place] Urine Protein Urine Glucose (UA) Urine Ketones Urine Blood Urine Nitrite Urine Bilirubin Urine Urobilinogen Ur Leukocyte Esterase Urine WBC (Auto) Urine RBC (Auto) Urine Mucus Synovial Source No Result Required. Synovial WBC 6284 Synovial RBC 7029 Synovial Neutrophils 87 Synovial Lymphocytes 2 Synovial Monocytes 4 Synovial Macrophages 7 Synovial Crystals Synovial Glucose Synovial Total Protein Synovial LDH Synovial Amylase Blood Type Antibody Screen 10/27/17 10/27/17 10/27/17 02:15 02:15 03:15 WBC RBC Hgb Hct MCV MCH MCHC RDW Plt Count MPV Neutrophils % Lymphocytes % Monocytes % Eosinophils % Basophils % ESR PT with INR INR PTT (Actin FS) Sodium Potassium Chloride Carbon Dioxide Anion Gap BUN Creatinine Creat Clearance w eGFR Random Glucose Lactic Acid 0.8 Calcium Total Bilirubin AST ALT Alkaline Phosphatase C-Reactive Protein Total Protein Albumin Urine Color Urine Appearance Urine pH Ur Specific [place] Urine Protein Urine Glucose (UA) Urine Ketones Urine Blood Urine Nitrite Urine Bilirubin Urine Urobilinogen Ur Leukocyte Esterase Urine WBC (Auto) Urine RBC (Auto) Urine Mucus Synovial Source Synovial WBC Synovial RBC Synovial Neutrophils Synovial Lymphocytes Synovial Monocytes Synovial Macrophages Synovial Crystals Negative Synovial Glucose 16 Synovial Total Protein 5 Synovial LDH 141 Synovial Amylase 58 Blood Type Antibody Screen 10/27/17 10/27/17 10/27/17 07:20 07:20 07:20 WBC 9.0 RBC 4.88 Hgb 13.2 Hct 41.6 MCV 85.2 MCH 27.0 MCHC 31.7 L RDW 13.1 Plt Count 332 MPV 9.1 Neutrophils % 59.2 Lymphocytes % 28.8 D Monocytes % 10.7 H Eosinophils % 0.8 Basophils % 0.5 ESR PT with INR 12.10 H INR 1.07 PTT (Actin FS) 36.0 H Sodium 140 Potassium 3.9 Chloride 103 Carbon Dioxide 31 Anion Gap 6 L BUN 12 Creatinine 0.9 Creat Clearance w eGFR > 60 Random Glucose 97 Lactic Acid Calcium 8.7 Total Bilirubin 0.7 AST 14 L D ALT 21 Alkaline Phosphatase 87 C-Reactive Protein Total Protein 7.5 Albumin 3.6 Urine Color Urine Appearance Urine pH Ur Specific [place] Urine Protein Urine Glucose (UA) Urine Ketones Urine Blood Urine Nitrite Urine Bilirubin Urine Urobilinogen Ur Leukocyte Esterase Urine WBC (Auto) Urine RBC (Auto) Urine Mucus Synovial Source Synovial WBC Synovial RBC Synovial Neutrophils Synovial Lymphocytes Synovial Monocytes Synovial Macrophages Synovial Crystals Synovial Glucose Synovial Total Protein Synovial LDH Synovial Amylase Blood Type Antibody Screen 10/27/17 09:15 WBC RBC Hgb Hct MCV MCH MCHC RDW Plt Count MPV Neutrophils % Lymphocytes % Monocytes % Eosinophils % Basophils % ESR PT with INR INR PTT (Actin FS) Sodium Potassium Chloride Carbon Dioxide Anion Gap BUN Creatinine Creat Clearance w eGFR Random Glucose Lactic Acid Calcium Total Bilirubin AST ALT Alkaline Phosphatase C-Reactive Protein Total Protein Albumin Urine Color Urine Appearance Urine pH Ur Specific [place] Urine Protein Urine Glucose (UA) Urine Ketones Urine Blood Urine Nitrite Urine Bilirubin Urine Urobilinogen Ur Leukocyte Esterase Urine WBC (Auto) Urine RBC (Auto) Urine Mucus Synovial Source Synovial WBC Synovial RBC Synovial Neutrophils Synovial Lymphocytes Synovial Monocytes Synovial Macrophages Synovial Crystals Synovial Glucose Synovial Total Protein Synovial LDH Synovial Amylase Blood Type A POSITIVE Antibody Screen Negative Active Medications Generic Name Dose Route Start Last Admin Trade Name Freq PRN Reason Stop Dose Admin Acetaminophen 650 mg 10/27/17 04:03 Tylenol - PO Q4H PRN FEVER OR PAIN Sodium Chloride 1,000 mls @ 75 mls/hr 10/27/17 04:15 10/27/17 10:38 Normal Saline - IV 75 mls/hr ASDIR JENNIFER Administration CEFTRIAXONE IN IS-OSM DEXTROSE 2 gm in 50 mls @ 100 mls/hr 10/28/17 10:00 Ceftriaxone 2 Gm-D5w Bag IVPB DAILY JENNIFER ASSESSMENT/PLAN: 27 yo man w/ no significant pmh admitted to the hospital for 4 days of L knee swelling, pain and + SIRS criteria. #Sepsis secondary to suspected septic arthritis - 2/4 SIRS (Tachy 122, fever) + presumptive L joint infection, WBC 11.5; L joint fluid WBC 6284; ERP, CRP elevated -Ortho consulted (Dr. Calhoun aware, will see pt in AM) -f/u cultures -continue ceftriaxone -f/u remaining joint studies -Tylenol for pain -WBC improved -f/u GC/Chlamydia -HIV test -lactate normal -continue IVF @ 75cc/hr -ID consult appreciated #Prophylaxis -SCDs #FEN -NS 75cc/hr -Daily BMPs, no eletrolyte abnormalities -Regular diet #Disposition continue to manage on med-surg Visit type - Emergency Visit Emergency Visit: No - New Patient This patient is new to me today: Yes Date on this admission: 10/27/17 - Critical Care Critical Care patient: No
--- NOTE | 2017-10-27 16:20 | PN ---
Teaching Attending Note Name of Resident: Lakhwinder Elizabeth ATTENDING PHYSICIAN STATEMENT Time of evaluation: 10:35 Am I saw and evaluated the patient. I reviewed the resident's note and discussed the case with the resident. I agree with the resident's findings and plan as documented. SUBJECTIVE: Patient seen and examined. left swelling and pain persistent. No new fevers, chills or new complaints. OBJECTIVE: Vital Signs Period Temp Pulse Resp BP Sys/Ta Pulse Ox Last 24 Hr 98.3 F-100.0 F 63-122 -18 109-142/59-76 98-100 Intake & Output 10/24/17 10/25/17 10/26/17 10/27/17 23:59 23:59 23:59 23:59 Weight 153 lb 153 lb Intake & Output 10/24/17 10/25/17 10/26/17 10/27/17 23:59 23:59 23:59 23:59 Weight 153 lb 153 lb General: lying in bed in no acute distress CVS:S1S2 regular Chest: CTAB, no rales or wheezing abdomen: soft, NT, ND, positive bowel sounds extremities: left knee swelling superomedial quadrant, some limitation in ROM, no warmth/erythema or overlying tenderness noted, positive pulses Home Medication List Medication Instructions Recorded Confirmed Type NK [No Known Home Medication] 10/27/17 10/27/17 History Active Medications Generic Name Dose Route Start Last Admin Trade Name Freq PRN Reason Stop Dose Admin Acetaminophen 650 mg 10/27/17 04:03 Tylenol - PO Q4H PRN FEVER OR PAIN Sodium Chloride 1,000 mls @ 75 mls/hr 10/27/17 04:15 10/27/17 10:38 Normal Saline - IV 75 mls/hr ASDIR JENNIFER Administration CEFTRIAXONE IN IS-OSM DEXTROSE 2 gm in 50 mls @ 100 mls/hr 10/28/17 10:00 Ceftriaxone 2 Gm-D5w Bag IVPB DAILY JENNIFER Laboratory Results - last 24 hr 10/26/17 10/26/17 10/26/17 20:50 20:59 20:59 WBC 11.5 H RBC 4.74 Hgb 12.9 Hct 39.7 MCV 83.8 MCH 27.2 MCHC 32.4 RDW 13.0 Plt Count 328 MPV 9.1 Neutrophils % 64.1 Lymphocytes % 23.7 Monocytes % 11.2 H Eosinophils % 0.5 Basophils % 0.5 ESR PT with INR INR PTT (Actin FS) Sodium 140 Potassium 3.8 Chloride 102 Carbon Dioxide 30 Anion Gap 8 BUN 10 Creatinine 0.9 Creat Clearance w eGFR > 60 Random Glucose 97 Lactic Acid Calcium 9.7 Total Bilirubin 0.7 AST 21 ALT 25 Alkaline Phosphatase 90 C-Reactive Protein Total Protein 7.9 Albumin 3.9 Urine Color Yellow Urine Appearance Clear Urine pH 9.0 H Ur Specific [place] 1.021 Urine Protein 1+ H Urine Glucose (UA) Negative Urine Ketones Negative Urine Blood Negative Urine Nitrite Negative Urine Bilirubin Negative Urine Urobilinogen 4.0 e.u/dl Ur Leukocyte Esterase Negative Urine WBC (Auto) <1 Urine RBC (Auto) None Urine Mucus Rare Synovial Source Synovial WBC Synovial RBC Synovial Neutrophils Synovial Lymphocytes Synovial Monocytes Synovial Macrophages Synovial Crystals Synovial Glucose Synovial Total Protein Synovial LDH Synovial Amylase Blood Type Antibody Screen 10/27/17 10/27/17 10/27/17 01:00 01:00 02:15 WBC RBC Hgb Hct MCV MCH MCHC RDW Plt Count MPV Neutrophils % Lymphocytes % Monocytes % Eosinophils % Basophils % ESR 13 H PT with INR INR PTT (Actin FS) Sodium Potassium Chloride Carbon Dioxide Anion Gap BUN Creatinine Creat Clearance w eGFR Random Glucose Lactic Acid Calcium Total Bilirubin AST ALT Alkaline Phosphatase C-Reactive Protein 1.8 H Total Protein Albumin Urine Color Urine Appearance Urine pH Ur Specific [place] Urine Protein Urine Glucose (UA) Urine Ketones Urine Blood Urine Nitrite Urine Bilirubin Urine Urobilinogen Ur Leukocyte Esterase Urine WBC (Auto) Urine RBC (Auto) Urine Mucus Synovial Source No Result Required. Synovial WBC 6284 Synovial RBC 7029 Synovial Neutrophils 87 Synovial Lymphocytes 2 Synovial Monocytes 4 Synovial Macrophages 7 Synovial Crystals Synovial Glucose Synovial Total Protein Synovial LDH Synovial Amylase Blood Type Antibody Screen 10/27/17 10/27/17 10/27/17 02:15 02:15 03:15 WBC RBC Hgb Hct MCV MCH MCHC RDW Plt Count MPV Neutrophils % Lymphocytes % Monocytes % Eosinophils % Basophils % ESR PT with INR INR PTT (Actin FS) Sodium Potassium Chloride Carbon Dioxide Anion Gap BUN Creatinine Creat Clearance w eGFR Random Glucose Lactic Acid 0.8 Calcium Total Bilirubin AST ALT Alkaline Phosphatase C-Reactive Protein Total Protein Albumin Urine Color Urine Appearance Urine pH Ur Specific [place] Urine Protein Urine Glucose (UA) Urine Ketones Urine Blood Urine Nitrite Urine Bilirubin Urine Urobilinogen Ur Leukocyte Esterase Urine WBC (Auto) Urine RBC (Auto) Urine Mucus Synovial Source Synovial WBC Synovial RBC Synovial Neutrophils Synovial Lymphocytes Synovial Monocytes Synovial Macrophages Synovial Crystals Negative Synovial Glucose 16 Synovial Total Protein 5 Synovial LDH 141 Synovial Amylase 58 Blood Type Antibody Screen 10/27/17 10/27/17 10/27/17 07:20 07:20 07:20 WBC 9.0 RBC 4.88 Hgb 13.2 Hct 41.6 MCV 85.2 MCH 27.0 MCHC 31.7 L RDW 13.1 Plt Count 332 MPV 9.1 Neutrophils % 59.2 Lymphocytes % 28.8 D Monocytes % 10.7 H Eosinophils % 0.8 Basophils % 0.5 ESR PT with INR 12.10 H INR 1.07 PTT (Actin FS) 36.0 H Sodium 140 Potassium 3.9 Chloride 103 Carbon Dioxide 31 Anion Gap 6 L BUN 12 Creatinine 0.9 Creat Clearance w eGFR > 60 Random Glucose 97 Lactic Acid Calcium 8.7 Total Bilirubin 0.7 AST 14 L D ALT 21 Alkaline Phosphatase 87 C-Reactive Protein Total Protein 7.5 Albumin 3.6 Urine Color Urine Appearance Urine pH Ur Specific [place] Urine Protein Urine Glucose (UA) Urine Ketones Urine Blood Urine Nitrite Urine Bilirubin Urine Urobilinogen Ur Leukocyte Esterase Urine WBC (Auto) Urine RBC (Auto) Urine Mucus Synovial Source Synovial WBC Synovial RBC Synovial Neutrophils Synovial Lymphocytes Synovial Monocytes Synovial Macrophages Synovial Crystals Synovial Glucose Synovial Total Protein Synovial LDH Synovial Amylase Blood Type Antibody Screen 10/27/17 10/27/17 07:20 09:15 WBC RBC Hgb Hct MCV MCH MCHC RDW Plt Count MPV Neutrophils % Lymphocytes % Monocytes % Eosinophils % Basophils % ESR PT with INR INR PTT (Actin FS) Sodium Potassium Chloride Carbon Dioxide Anion Gap BUN Creatinine Creat Clearance w eGFR Random Glucose Lactic Acid Calcium Total Bilirubin AST ALT Alkaline Phosphatase C-Reactive Protein Total Protein Albumin Urine Color Urine Appearance Urine pH Ur Specific [place] Urine Protein Urine Glucose (UA) Urine Ketones Urine Blood Urine Nitrite Urine Bilirubin Urine Urobilinogen Ur Leukocyte Esterase Urine WBC (Auto) Urine RBC (Auto) Urine Mucus Synovial Source Synovial WBC Synovial RBC Synovial Neutrophils Synovial Lymphocytes Synovial Monocytes Synovial Macrophages Synovial Crystals Synovial Glucose Synovial Total Protein Synovial LDH Synovial Amylase Blood Type A POSITIVE A POSITIVE Antibody Screen Negative Microbiology 10/27/17 02:15 Synovial Fluid - Knee Gram Stain - Final ASSESSMENT AND PLAN: 27 yom with left knee pain and swelling, arthalgia, low grade fever and mild leucocytosis s/p left knee arthrocentesis in the ED. -Left knee swelling/arthralgia, fluid not fully consistent with septic arthritis , ?inflammatory, family Hx of ?arthritis Plan Orthopedic/ID input appreciated. Follow up synovial fluid studies. Crystals and gm stain neg. Ceftriaxone, follow up cultures. Rheumatology input if infectious w/u neg. Discussed with patient to retrieve more info about arthritis in his family members. Place on DVTPPX with lovenox if non ambulatory > 48 hours. Plan discussed with patient and all questions answered.
--- NOTE | 2017-10-28 07:30 | MSN ---
Progress Note (short form) - Note Progress Note: SUBJECTIVE CC: L knee pain with swelling x 4 days HPI: Patient seen and examined today. Pt states pain and swelling in L knee are much improved since admission. However, pain is same as yesterday after synovial fluid aspiration. He reports pain when moving the L leg in certain positions and full ROM of L knee; when he was admitted, he reports, "I couldn't bend it at all". He denies pain elsewhere in the body. He states his mother and paternal grandfather have a hx of rheumatoid arthritis and his younger sister has "some type of jaw problem that required surgery". His mother was dx with RA at age 30. He agreed to check with family today regarding specific dx. He states he does not remember trauma and does not exercise often. He denies n/v, fever, chills, dizziness, fever, or rashes. Pt can ambulate to restroom by self without assist. OBJECTIVE Last Vital Signs Temp Pulse Resp BP Pulse Ox 97.3 F L 68 16 115/53 99 10/28/17 06:00 10/28/17 06:00 10/28/17 06:00 10/28/17 06:00 10/27/17 22:00 General: Pt is lying comfortably in bed, resting, in no acute distress. Heart: Regular rate and rhythm. No murmurs appreciated. S1/S2. Lungs: Clear to auscultation B/L with equal breath sounds. No crackles, wheezing or rhonchi. Abdomen: NT/ND. Normoactive bowel sounds in all four quadrants. Soft to palpation in all four quadrants. Extremities: 2+ radial pulses, 2+ DP pulses, no cyanosis, clubbing or edema. R knee without gross deformity, erythema, edema or pain to palpation. L knee is not painful to palpation; effusion in L lateral suprapatellar knee has resolved , no warmth to touch, no erythema. Painful in external rotation of L leg/knee; tension but no pain in internal rotation. Full flexion/extension of L knee. Synovial aspiration site was taped with band-aid, no drainage or discharge noted. Negative Ja's on L knee. L knee xray 10/27 - suprapatellar joint effusion in L knee, no acute bony abnormalities CXR 10/27: No evidence of acute pulmonary disease EKG 10/27: normus sinus rhythm, normal CBC, BMP 10/27/17 07:20 10/27/17 07:20 Abnormal Lab Results 10/27/17 10/27/17 07:20 07:20 PT with INR 12.10 H PTT (Actin FS) 36.0 H Anion Gap 6 L AST 14 L D Laboratory Results - last 24 hr 10/27/17 10/27/17 10/27/17 02:15 07:20 07:20 PT with INR 12.10 H INR 1.07 PTT (Actin FS) 36.0 H Sodium 140 Potassium 3.9 Chloride 103 Carbon Dioxide 31 Anion Gap 6 L BUN 12 Creatinine 0.9 Creat Clearance w eGFR > 60 Random Glucose 97 Calcium 8.7 Total Bilirubin 0.7 AST 14 L D ALT 21 Alkaline Phosphatase 87 Total Protein 7.5 Albumin 3.6 Synovial Crystals Negative Blood Type Antibody Screen 10/27/17 10/27/17 07:20 09:15 PT with INR INR PTT (Actin FS) Sodium Potassium Chloride Carbon Dioxide Anion Gap BUN Creatinine Creat Clearance w eGFR Random Glucose Calcium Total Bilirubin AST ALT Alkaline Phosphatase Total Protein Albumin Synovial Crystals Blood Type A POSITIVE A POSITIVE Antibody Screen Negative Active Medications Generic Name Dose Route Start Last Admin Trade Name Freq PRN Reason Stop Dose Admin Acetaminophen 650 mg 10/27/17 04:03 10/27/17 22:51 Tylenol - PO 650 mg Q4H PRN Administration FEVER OR PAIN Sodium Chloride 1,000 mls @ 75 mls/hr 10/27/17 04:15 10/27/17 10:38 Normal Saline - IV 75 mls/hr ASDIR JENNIFER Administration Indomethacin 50 mg 10/28/17 12:00 10/28/17 11:36 Indocin - PO 50 mg [facility] JENNIFER Administration Laboratory Results - last 24 hr 10/27/17 10/27/17 10/28/17 07:20 09:15 07:30 HIV 1&2 Antibody Screen Negative HIV P24 Antigen Negative Blood Type A POSITIVE A POSITIVE Antibody Screen Negative Microbiology 10/27/17 01:05 Blood Culture - Preliminary Blood - Peripheral Venous NO GROWTH OBTAINED AFTER 24 HOURS, INCUBATION TO CONTINUE FOR 4 DAYS. 10/27/17 01:03 Blood Culture - Preliminary Blood - Peripheral Venous NO GROWTH OBTAINED AFTER 24 HOURS, INCUBATION TO CONTINUE FOR 4 DAYS. 10/27/17 02:15 Gram Stain - Final Synovial Fluid - Knee Active Medications Generic Name Dose Route Start Last Admin Trade Name Freq PRN Reason Stop Dose Admin Acetaminophen 650 mg 10/27/17 04:03 10/27/17 22:51 Tylenol - PO 650 mg Q4H PRN Administration FEVER OR PAIN Sodium Chloride 1,000 mls @ 75 mls/hr 10/27/17 04:15 10/27/17 10:38 Normal Saline - IV 75 mls/hr ASDIR JENNIFER Administration Indomethacin 50 mg 10/28/17 12:00 10/28/17 11:36 Indocin - PO 50 mg [facility] JENNIFER Administration ASSESSMENT 27 y/o M with no PMHx who presented to ED with 4 days of progressive pain and swelling in L knee. Pt was febrile and tachycardic upon admission and admitted to sepsis possibly 2/2 septic arthritis. PLAN 1. Joint effusion likely 2/2 inflammatory process vs. Keyshawn's - Pt febrile, tachycardic, leukocytosis at 11.5 on admission; now WBC wnl, vitals all wnl, pt is afebrile. Likely stress reaction; not likely to be septic joint given full ROM, mild elevation in WBC. - UA, CXR, EKG wnl; likely not cardiac, urinary tract, pulmonary. Synovial aspirate findings indicate likely not infectious etiology. - suprapatellar L knee effusion noted on X-ray; likely inflammatory changes, ESR and CRP elevated upon admission. - Synovial fluid aspirate culture, gram stain was negative with no crystals. 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 Pt also has strong family hx of RA; mother was dx at age 30, and paternal grandfather. - D/C all abx and fluids. - HIV serology negative. - Ortho consulted, Dr. Calhoun. Noted effusion in L knee, NSAIDs/Abx. - Tylenol PRN pain; Indomethacin 50mg PO - IVF - NS 1000mls @75cc/hr 2. FEN - Fluids: IV NS 1000mls @75cc/hr - Electrolytes: wnl - Nutrition: Regular diet 3. PPX - early ambulation. Pt is able to ambulate to restroom with no complications. 4. Dispo - Will D/C today, schedule appointment with resident clinic (Dr. Cooper) and outpt f/u with manager event. Patient requests doctor's note for his work. Valery Jacob, OMS-3
[2017-10-28] MEDS ORDERED: KETOROLAC TROMETHAMINE 10 MG TABLET PO PRN (08:45)
[2017-10-28] MEDS ORDERED: PT OWN MED DRAWER 7, Y5N ONE ×3 (09:48→19:02)
[2017-10-28] MEDS ORDERED: CEFTRIAXONE IN IS-OSM DEXTROSE 2 GM/50 ML BAG IVPB SCH (10:00)
--- NOTE | 2017-10-28 10:21 | PN ---
Progress Note, Physician Chief Complaint: ID Patient give history of knee arthralgias on and off for years ?? Ceftraixone - Current Medication List Current Medications: Active Medications Acetaminophen (Tylenol -) 650 mg PO Q4H PRN PRN Reason: FEVER OR PAIN Last Admin: 10/27/17 22:51 Dose: 650 mg Sodium Chloride (Normal Saline -) 1,000 mls @ 75 mls/hr IV ASDIR JENNIFER Last Admin: 10/27/17 10:38 Dose: 75 mls/hr CEFTRIAXONE IN IS-OSM DEXTROSE (Ceftriaxone 2 Gm-D5w Bag) 2 gm in 50 mls @ 100 mls/hr IVPB DAILY JENNIFER Ketorolac Tromethamine (Toradol) 10 mg PO Q6H PRN PRN Reason: PAIN Stop: 11/02/17 08:44 - Objective Vital Signs: Vital Signs Temperature 97.8 F 10/28/17 08:07 Pulse Rate 57 L 10/28/17 08:07 Respiratory Rate 18 10/28/17 08:07 Blood Pressure 118/68 10/28/17 08:07 O2 Sat by Pulse Oximetry (%) 99 10/27/17 22:00 Constitutional: Yes: Well Nourished, No Distress HENT: Yes: WNL, Atraumatic Neck: Yes: WNL, Supple Cardiovascular: Yes: S1, S2. No: Murmur Respiratory: Yes: WNL, Regular, CTA Bilaterally Gastrointestinal: Yes: WNL, Normal Bowel Sounds, Soft. No: Tenderness Extremities: Yes: Other (right knee fluid) Labs: CBC, BMP 10/27/17 07:20 10/27/17 07:20 INR, PTT INR 1.07 (0.82-1.09) 10/27/17 07:20 Assessment/Plan Laboratory Tests 10/26/17 10/27/17 10/27/17 20:50 01:00 01:00 WBC Hgb Plt Count ESR 13 H BUN Creatinine C-Reactive Protein 1.8 H Synovial WBC Synovial RBC Synovial Neutrophils Synovial Lymphocytes Synovial Monocytes Synovial Macrophages Synovial Crystals Synovial Glucose Synovial Total Protein Lyme Screen IgG & IgM C.trachomatis Ampl DNA Pending N. gonorrhoeae (MARY) Pending 10/27/17 10/27/17 10/27/17 01:00 02:15 02:15 WBC Hgb Plt Count ESR BUN Creatinine C-Reactive Protein Synovial WBC 6284 Synovial RBC 7029 Synovial Neutrophils 87 Synovial Lymphocytes 2 Synovial Monocytes 4 Synovial Macrophages 7 Synovial Crystals Negative Synovial Glucose Synovial Total Protein Lyme Screen IgG & IgM Pending C.trachomatis Ampl DNA N. gonorrhoeae (MARY) 10/27/17 10/27/17 10/27/17 02:15 07:20 07:20 WBC 9.0 Hgb 13.2 Plt Count 332 ESR BUN 12 Creatinine 0.9 C-Reactive Protein Synovial WBC Synovial RBC Synovial Neutrophils Synovial Lymphocytes Synovial Monocytes Synovial Macrophages Synovial Crystals Synovial Glucose 16 Synovial Total Protein 5 Lyme Screen IgG & IgM C.trachomatis Ampl DNA N. gonorrhoeae (MARY) Assesment Given chronic knee pains and fluid analysis I feel septic arthiritis unlikely The culture is negative at this time Reiters always in the differential diagnosis Plan Would stop antibiotic Refer to rheumatology STACY Collado MD
[2017-10-28] MEDS: INDOMETHACIN 50 MG CAPSULE PO SCH ×2 (11:36→17:31)
--- NOTE | 2017-10-28 13:19 | PN ---
Teaching Attending Note Name of Resident: Lakhwinder Cooper ATTENDING PHYSICIAN STATEMENT Time of evaluation: 11:00 AM I saw and evaluated the patient. I reviewed the resident's note and discussed the case with the resident. I agree with the resident's findings and plan as documented. SUBJECTIVE: patient seen and examined. left knee symptoms markedly improved. Almost resolved , able to ambulate, no fevers or chills. OBJECTIVE: Vital Signs Period Temp Pulse Resp BP Sys/Ta Pulse Ox Last 24 Hr 97.3 F-98.9 F 57-74 16-18 109-118/53-81 99-99 Intake & Output 10/25/17 10/26/17 10/27/17 10/28/17 23:59 23:59 23:59 23:59 Intake Total 1400 450 Balance 1400 450 Weight 153 lb 153 lb General: sitting in bed in no acute distress Extremities; Left knee minimal medial swelling, no warmth or tenderness, good ROM Active Medications Generic Name Dose Route Start Last Admin Trade Name Freq PRN Reason Stop Dose Admin Acetaminophen 650 mg 10/27/17 04:03 10/27/17 22:51 Tylenol - PO 650 mg Q4H PRN Administration FEVER OR PAIN Sodium Chloride 1,000 mls @ 75 mls/hr 10/27/17 04:15 10/27/17 10:38 Normal Saline - IV 75 mls/hr ASDIR JENNIFER Administration Indomethacin 50 mg 10/28/17 12:00 10/28/17 11:36 Indocin - PO 50 mg [facility] JENNIFER Administration Laboratory Results - last 24 hr 10/27/17 10/28/17 07:20 07:30 HIV 1&2 Antibody Screen Negative HIV P24 Antigen Negative Blood Type A POSITIVE Microbiology 10/27/17 02:15 Synovial Fluid - Knee Gram Stain - Final 10/27/17 02:15 Synovial Fluid - Knee Body Fluid Culture - Preliminary NO AEROBIC GROWTH, 24 HRS 10/27/17 01:05 Blood - Peripheral Venous Blood Culture - Preliminary NO GROWTH OBTAINED AFTER 24 HOURS, INCUBATION TO CONTINUE FOR 4 DAYS. 10/27/17 01:03 Blood - Peripheral Venous Blood Culture - Preliminary NO GROWTH OBTAINED AFTER 24 HOURS, INCUBATION TO CONTINUE FOR 4 DAYS. ASSESSMENT AND PLAN: 27 yom with left knee pain and swelling, arthalgia, low grade fever and mild leucocytosis s/p left knee arthrocentesis in the ED. -Left knee swelling/arthralgia, fluid not fully consistent with septic arthritis , ?inflammatory, family Hx of ?arthritis Plan Orthopedic/ID input appreciated. Discussed with Dr. Collado, clinical presentation and symptoms suspicious for Reitter's syndrome. Current presentation, knee exam and findings not consistent with septic arthritis as discussed wtih him. Plan to d/c antibiotics and place on NSAIDs prn with outpatient rheumatology follow up per ID recs. Discussed in detail with patient and all questions answered. Patient informed of pending final cultures and follow up needs. dc home today with outpatient rheumatology follow up.
--- NOTE | 2017-10-28 13:52 | DS ---
Physical Exam: SUBJECTIVE: Pt has no complaints today. No acute events overnight. OBJECTIVE: Vital Signs Period Temp Pulse Resp BP Sys/Ta Pulse Ox Last 24 Hr 97.3 F-98.9 F 57-74 16-18 109-118/53-81 99-99 PHYSICAL EXAM GENERAL: NAD, awake, alert, and fully oriented HEENT: NC/AT, sclera clear and anicteric, EOMI, GAVINO, moist mucosa with normal structures of mouth LUNGS: CTA bilaterally, no wheezes, no crackles, no rhonchi. no accessory muscle use. HEART: RRR, S1, S2 without murmur ABDOMEN: Soft, nontender, nondistended, normoactive bowel sounds, no guarding, no hepatomegaly, no masses. EXTREMITIES: 2+ DP pulses, warm, well-perfused, R knee inflammation decreased based upon previous notes, no erythema currently, R knee flexion slightly limited due to pain (normal extension) NEUROLOGICAL: Cranial nerves II through XII grossly intact. Normal speech, gait not observed. PSYCH: Normal mood, normal affect. SKIN: Warm, dry, no rashes or lesions noted. LABS Laboratory Results - last 24 hr 10/27/17 10/28/17 07:20 07:30 HIV 1&2 Antibody Screen Negative HIV P24 Antigen Negative Blood Type A POSITIVE HOSPITAL COURSE: Date of Admission:10/27/17 Date of Discharge: 10/28/17 Pt was admitted on 10/27/17 for 4 days of progressive worsening L knee swelling and pain meeting 2/4 SIRS criteria (Fever 100, tachy 122) who was admitted for septic joint r/o. Orthopedics was consulted and a synovial fluid aspiration was performed. Synovial fluid aspiration revealed: Laboratory Tests 10/27/17 10/27/17 10/27/17 02:15 02:15 02:15 Synovial WBC 6284 Synovial RBC 7029 Synovial Neutrophils 87 Synovial Lymphocytes 2 Synovial Monocytes 4 Synovial Macrophages 7 Synovial Crystals Negative Synovial Glucose 16 Synovial Total Protein 5 Synovial LDH 141 Synovial Amylase 58 Pt was received one dose of Vancomycin and one dose of Rocephin, however these were discontinued as synovial fluid analysis showed an inflammatory picture. 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 Pt is being discharged in stable condition with instructions to follow-up with his PMD and a platform consultant. Minutes to complete discharge: 35 Discharge Summary Reason For Visit: FEVER WITH CHILLS,SWELLING OF LEFT KNEE JOINT Current Active Problems Swelling of knee joint, left (Acute) Condition: Good - Instructions Diet, Activity, Other Instructions: RECOMMENDATIONS You were hospitalized due to your swollen knee. We ruled out any infectious cause and believe it to be a type of inflammatory process Please use light work and rest for the next few days. We will give you a note for the past days of work and the upcoming work days If you start to develop fevers or chills please see your medical doctor or come back to the ER for further evaluation Your blood cultures so far have been without any bacterial growth, however they will be kept for a few days to see if anything grows --If something does grow you will be notified by telephone In addition, your other blood tests are still pending and if anything is positive you will be notified with instructions by phone; if not then you can follow-up with a general medical practitioner. MEDICATION CHANGES: We will give you a few days worth of Indomethacin which is an NSAID (like aleve or advil) --This was sent to the [facility] on [address] [facility] in [place] FOLLOW-UPs You should follow-up with your general medical doctor --If you do not have one please feel free to call [phone] to schedule and appointment for Dr. Correia and Dr. Cooper You should follow-up with Dr. Mckoy who is a platform consultant due to this inflammatory episode in 1-2 weeks; his office number is --Please have him follow-up with blood tests called "TONYA, [id number], and RF. " These are just markers of inflammatory disease that helps to guide any changes in management Referrals: Rico Correia MD [Staff Physician] - Galen Mckoy MD [Staff Physician] - Disposition: HOME - Home Medications Comprehensive Discharge Medication List: Ambulatory Orders Indomethacin 25 mg PO BID PRN #12 capsule 10/28/17 This patient is new to me today: No Emergency Visit: No Critical Care patient: No - Discharge Referral Referred to [facility] Med P.C[facility] No
[2017-10-28 15:30] VITALS: BP 119/65; PULSE 67; TEMP 98.4
[2017-10-28] MEDS: SODIUM CHLORIDE 1,000 ML IV SCH (17:32)
== END 2017-10-28 18:32 | disposition home or self-care (01) | DRG 346 ==
LOC: JER 20:41 → JERBED 10-27 02:58 → J6S 10-27 21:16
PROVIDERS: ADMIT Internal Medicine; ATTEND Hospitalist
PROC: 0S9D3ZX Drainage of Left Knee Joint, Percutaneous Approach, Diagnostic (ICD-10-PCS; principal; 2017-10-27)
DX: M02.362 Reiter's disease, left knee (principal); M25.462 Effusion, left knee; M13.162 Monoarthritis, not elsewhere classified, left knee; F17.210 Nicotine dependence, cigarettes, uncomplicated; R50.9 Fever, unspecified; R00.0 Tachycardia, unspecified
CPT/HCPCS: 36415; 71046-TC; 73560-TC-LT; 80053; 81003; 81015; 82150; 82945; 83605; 83615; 84157; 85025; 85610; 85651; 85730; 86140; 86618; 86850; 86900; 86901; 87040; 87070; 87075; 87205; 87389; 87491; 87591; 89051; 89060; 93005; 93010; 99285-25